=== PATIENT | male | born 1945 | race Caucasian/White ===

== ENCOUNTER 2017-06-13 18:38 | Emergency (ER) | payer MEDICARE ==
[~2017-06-13] VITALS: Ht 167.6 cm; Wt 74.1 kg
[~2017-06-13 18:38] MED LIST: ACETAMINOPHEN W1 TA6 PO; ACIPHEX20 MG PO; ALBUTEROL0.09 MG/A1 IH; ALBUTEROL0.83 MG/ML IH; AMOXICILLIN 50500 MG PO; AMOXICILLIN 8751 TAB PO; BETIMOL 0.5% OPH5 ML OP; CELEBREX 200MG200 MG PO; CELEXA20 MG PO; CELEXA40 MG PO; CLOPIDOGREL PO; COMBIRESP; COMBIVENT INH14.7 GM IH; COUMADIN 22.5 MG/TAB PO; COUMADIN 5MG5 MG/TAB PO; CYMBALTA 60MG60 MG PO; DOXYCYCLINE 10100 MG PO; FISH OIL CONC1000 MG PO; FLONASE NASAL S16 GM NS; FORADIL AERO0.012 MG IH; ISTALOL 2.5 ML2.5 ML OP; LIPITOR 40MG TA40 MG PO; LIPITOR 80MG80 MG PO; LISINOPRIL10 MG PO; LISINOPRIL5 MG PO; LOPRESSOR 225 MG/TAB PO; LOPRESSOR PO; LORTAB 7.5/5001 TAB PO; MASON NATURAL2000 IU PO; MUCINEX D1 TER PO; NASACORT AQ N16.5 GM NS; NASONEX SPRAY INH; NORCO 325 MG-51 TAB PO; NORCO 325 MG-7.1 TAB PO; PANTOPRAZOLE40 MG PO; PEPCID 20MG TAB20 MG PO; PLAVIX 75MG TAB75 MG PO; PREDNISONE10 MG PO; PREDNISONE20 MG PO; PRINIVIL20 MG PO; PRINIVIL5 MG PO; PRO-AIR IH; PROTONIX 40MG T40 MG PO; PROVENTIL0.09 MG/A1 IH; PULMICORT0.5 MG/21 IH; REMERON 15M15 MG/TA1 PO; REMERON30 MG PO; RT SPIRIVA18 MCG IH; SEPTRA DS 8001 TAB PO; SINGULAIR10 MG PO; TIMOLOL 0.5% OP10 ML OS; TIMOLOL OPHTHALMIC OS; TIMOPTIC OCUDOSE0.5% OP; TOPROL XL 25MG25 MG PO; TOPROL XL25 MG PO; TRAVATAN 2.5 M2.5 M1 OU; TRAVATAN 2.5 M2.5 ML OP; TRAVATAN Z 2.52.5 ML OU; TYLENOL 325MG325 MG PO; TYLENOL 500MG500 MG PO; ULTRAM 50MG TAB50 MG PO; VENTOLIN0.09 MG IH; XALATAN EYE DROPS OD; XALATAN EYE DROPS OU; ZESTRIL 10MG10 MG PO; ZESTRIL10 MG PO; ZITHROMAX 250M250 MG PO; ZOCOR80 MG PO
[2017-06-13 18:47] VITALS: BP 133/82; TEMP 99.6
[2017-06-13 19:25] LABS: BASO # 0.1 (0.0-0.2); BASO % 0.5 % (0.0-2.0); EOS # 0.3 (0.0-0.7); EOS % 2.8 % (0-4.0); GRAN # 7.1 (1.4-6.5); GRAN % 69.1 % (42.2-75.2); HEMATOCRIT 40.5 % (42.0-52.0); LYMPH # 1.6 (1.2-3.4); LYMPH % 15.2 % (20.0-51.0); MEAN CELL VOLUME 95 fl (80.0-100.0); MEAN CORPUSCULAR HEMOGLOBIN 33 pg (27.0-31.0); MEAN CORPUSCULAR HGB CONC 35 g/dl (33.0-37.0); MEAN PLATELET VOLUME 9.3 fl (7.4-10.4); MONO # 1.2 (0.1-0.6); MONO % 12.1 % (1.7-9.3); PLATELET COUNT 234 K/mm3 (130-400); RED BLOOD COUNT 4.27 M/mm3 (4.20-5.60); WHITE BLOOD COUNT 10.3 K/mm3 (4.8-10.8)
[2017-06-13] MEDS ORDERED: ZYRTEC5 MG PO (19:28)
[2017-06-13] MEDS ORDERED: ROBITUSSIN100 MG/5 M PO (19:28)
[2017-06-13 19:44] LABS: CALCIUM 9.1 mg/dL (8.4-10.2); CREATININE, serum 1.5 mg/dL (0.66-1.25); POTASSIUM 3.9 mmol/L (3.4-5.0)
[2017-06-13] MEDS ORDERED: LEVAQUIN 750MG750 M1 PO (20:58)
[2017-06-13] MEDS ORDERED: TUSS PO (20:58)
[2017-06-13] MEDS ORDERED: PREDNISONE20 MG PO (20:58)
[2017-06-13 21:09] VITALS: PULSE 86
== END 2017-06-13 21:05 | disposition home or self-care (01) ==
LOC: COL.ER 18:38
PROVIDERS: Emergency Medicine
DX: J20.9 Acute bronchitis, unspecified (principal); Z87.09 Personal history of other diseases of the respiratory system; Z79.02 Long term (current) use of antithrombotics/antiplatelets
CPT/HCPCS: J7512

== ENCOUNTER 2017-06-23 17:24 | Emergency (ER) | payer MEDICARE ==
[~2017-06-23] VITALS: Ht 167.6 cm; Wt 78.6 kg
[~2017-06-23 17:24] MED LIST changes: +LEVAQUIN 750MG750 M1 PO; +ROBITUSSIN100 MG/5 M PO; +TUSS PO; +ZYRTEC5 MG PO
[2017-06-23 17:29] VITALS: TEMP 98.3
[2017-06-23 18:25] LABS: BASO % 0.3 % (0.0-2.0); EOS # 0.1 (0.0-0.7); GRAN # 8.3 (1.4-6.5); GRAN % 65.7 % (42.2-75.2); HEMOGLOBIN 14.1 g/dl (13.5-18.0); LYMPH # 2.6 (1.2-3.4); LYMPH % 20.9 % (20.0-51.0); MEAN CELL VOLUME 96 fl (80.0-100.0); MEAN CORPUSCULAR HEMOGLOBIN 32 pg (27.0-31.0); MEAN CORPUSCULAR HGB CONC 34 g/dl (33.0-37.0); MEAN PLATELET VOLUME 8.9 fl (7.4-10.4); MONO # 1.3 (0.1-0.6); MONO % 9.9 % (1.7-9.3); PLATELET COUNT 250 K/mm3 (130-400); RED BLOOD COUNT 4.37 M/mm3 (4.20-5.60); WHITE BLOOD COUNT 12.6 K/mm3 (4.8-10.8)
[2017-06-23 18:33] LABS: ADJUSTED CALCIUM 9.4 mg/dL (8.4-10.2); ALANINE AMINOTRANSFERASE 38 U/L (21-72); ALBUMIN 3.5 gm/dL (3.5-5.0); ALKALINE PHOSPHATASE 74 U/L (50-136); ANION GAP 8 mmol/L (7-16); BILIRUBIN,TOTAL 0.5 mg/dL (0.0-1.0); BLOOD UREA NITROGEN 30 mg/dL (9-20); CARBON DIOXIDE 29 mmol/L (22-30); CHLORIDE 100 mmol/L (98-107); CREATININE, serum 1.24 mg/dL (0.66-1.25); GLUCOSE 68 mg/dL (74-106); POTASSIUM 4.3 mmol/L (3.4-5.0); SODIUM 137 mmol/L (137-145); TOTAL PROTEIN 6.5 gm/dL (6.4-8.2)
[2017-06-23 18:45] LABS: TROPONIN-I < 0.012 ng/mL (0.000-0.034)
[2017-06-23 20:20] VITALS: BP 131/74; PULSE 57
== END 2017-06-23 20:15 | disposition home or self-care (01) ==
LOC: COL.ER 17:24
PROVIDERS: Emergency Medicine
DX: I95.9 Hypotension, unspecified (principal); I10 Essential (primary) hypertension; J44.9 Chronic obstructive pulmonary disease, unspecified; I25.10 Atherosclerotic heart disease of native coronary artery without angina pectoris; Z79.02 Long term (current) use of antithrombotics/antiplatelets; Z96.0 Presence of urogenital implants; Z98.890 Other specified postprocedural states
CPT/HCPCS: J7030

== ENCOUNTER 2017-12-24 15:32 | Emergency (ER) | payer MEDICARE ==
[2017-12-24 15:44] VITALS: TEMP 98.1
[2017-12-24 18:42] LABS: COLLECTION METHOD CLEAN CATCH
[2017-12-24 18:44] LABS: BASO # 0.1 (0.0-0.2); BASO % 0.8 % (0.0-2.0); EOS # 0.3 (0.0-0.7); EOS % 4.5 % (0-4.0); GRAN % 59.8 % (42.2-75.2); HEMATOCRIT 39.4 % (42.0-52.0); HEMOGLOBIN 13.5 g/dl (13.5-18.0); LYMPH # 1.7 (1.2-3.4); LYMPH % 25.2 % (20.0-51.0); MEAN CELL VOLUME 94 fl (80.0-100.0); MEAN CORPUSCULAR HEMOGLOBIN 32 pg (27.0-31.0); MEAN CORPUSCULAR HGB CONC 34 g/dl (33.0-37.0); MEAN PLATELET VOLUME 9.2 fl (7.4-10.4); MONO # 0.6 (0.1-0.6); MONO % 9.4 % (1.7-9.3); PLATELET COUNT 225 K/mm3 (130-400); RED BLOOD COUNT 4.19 M/mm3 (4.20-5.60)
[2017-12-24 18:51] LABS: MUCOUS Present /lpf; PH 6 (5-8); SQUAMOUS EPITHELIAL None Seen /hpf; URINE APPEARANCE Clear; URINE BACTERIA None Seen /hpf; URINE BILIRUBIN Negative (NEGATIVE); URINE BLOOD Negative (NEGATIVE); URINE COLOR Yellow; URINE GLUCOSE Negative (NEGATIVE); URINE KETONE Negative (NEGATIVE); URINE LEUKOCYTE ESTERASE Negative (NEGATIVE); URINE NITRATE Negative (NEGATIVE); URINE PROTEIN(semi-quant) Negative (NEGATIVE); URINE RBC 0-2 /hpf; URINE UROBILINOGEN >=4.0 mg/dL (NEGATIVE)
[2017-12-24 19:00] LABS: ALBUMIN 3.7 gm/dL (3.5-5.0); BILIRUBIN,TOTAL 0.6 mg/dL (0.0-1.0); CREATININE, serum 1.39 mg/dL (0.66-1.25); POTASSIUM 3.9 mmol/L (3.4-5.0); TOTAL PROTEIN 7.6 gm/dL (6.4-8.2)
[2017-12-24 19:39] VITALS: BP 126/84; PULSE 58
== END 2017-12-24 19:33 | disposition home or self-care (01) ==
LOC: COL.ER 15:32
PROVIDERS: Emergency Medicine
DX: S06.0X0A Concussion without loss of consciousness, initial encounter (principal); S43.402A Unspecified sprain of left shoulder joint, initial encounter; I25.2 Old myocardial infarction; J44.9 Chronic obstructive pulmonary disease, unspecified; Z87.891 Personal history of nicotine dependence; Z79.02 Long term (current) use of antithrombotics/antiplatelets; Z79.82 Long term (current) use of aspirin; W17.89XA Other fall from one level to another, initial encounter; Y92.009 Unspecified place in unspecified non-institutional (private) residence as the place of occurrence of the external cause

== ENCOUNTER 2018-03-08 18:22 | Emergency (ER) | payer MEDICARE ==
[~2018-03-08] VITALS: Ht 167.6 cm; Wt 81.8 kg
[2018-03-08 18:28] VITALS: BP 131/64; PULSE 69; TEMP 97.9
[2018-03-08] MEDS ORDERED: CEPHALEXIN500 M1 PO (19:29)
== END 2018-03-08 19:53 | disposition home or self-care (01) ==
LOC: COL.ER 18:22
DX: L03.115 Cellulitis of right lower limb (principal); I12.9 Hypertensive chronic kidney disease with stage 1 through stage 4 chronic kidney disease, or unspecified chronic kidney disease; N18.9 Chronic kidney disease, unspecified; J44.9 Chronic obstructive pulmonary disease, unspecified; I25.10 Atherosclerotic heart disease of native coronary artery without angina pectoris; Z79.02 Long term (current) use of antithrombotics/antiplatelets

== ENCOUNTER 2018-04-11 05:33 | Day surgery (SDC) | payer MEDICARE ==
[2018-04-11] VITALS (8 sets, daily range): BP systolic 102–132; BP diastolic 55–74; PULSE 61–68; TEMP 97.4–97.9
[~2018-04-11] VITALS: Ht 167.6 cm; Wt 82.6 kg
[~2018-04-11 05:33] MED LIST changes: +CEPHALEXIN500 M1 PO
[2018-04-11] MEDS ORDERED: TOPROL XL 25MG25 MG PO (06:51)
[2018-04-11] MEDS ORDERED: PRINIVIL10 MG PO (06:52)
[2018-04-11] MEDS ORDERED: PROVENTIL0.09 MG/A1 IH (06:55)
[2018-04-11] MEDS ORDERED: BACITRACIN TOPIC1 TU TOP (06:56)
[2018-04-11] MEDS ORDERED: 00186-0370-20 IH (06:56)
[2018-04-11] MEDS ORDERED: FLONASEALLERGY NS (06:57)
[2018-04-11] MEDS ORDERED: HCTZ12.5TAB PO (06:57)
[2018-04-11] MEDS ORDERED: XALATAN EYE DROPS OU (06:58)
[2018-04-11] MEDS ORDERED: UROCIT-K 5540 MG/TAB PO (06:59)
[2018-04-11] MEDS ORDERED: NITROSTAT0.4 MG/TAB SL (06:59)
[2018-04-11] MEDS ORDERED: SPIRIVA RE2.5 MCG/Ac IH (07:00)
[2018-04-11] MEDS ORDERED: ASPIRIN 81M81 MG/TA2 PO (07:08)
[2018-04-11] MEDS ORDERED: ARTIFICIAL SALIVA PO (07:08)
[2018-04-11] MEDS ORDERED: IMDUR 30MG30 MG/TAB PO (07:09)
[2018-04-11] MEDS ORDERED: PEPCID 20MG TAB20 MG PO (07:09)
[2018-04-11] MEDS ORDERED: DESYREL 50MG50 MG PO (07:10)
[2018-04-11] MEDS ORDERED: NORCO 325 MG-7.1 TAB PO (10:33)
== END 2018-04-11 12:00 | disposition home or self-care (01) ==
LOC: SDCO 05:33
DX: S83.231A Complex tear of medial meniscus, current injury, right knee, initial encounter (principal); M94.8X6 Other specified disorders of cartilage, lower leg; Z79.82 Long term (current) use of aspirin; Z79.899 Other long term (current) drug therapy; Z79.02 Long term (current) use of antithrombotics/antiplatelets; Z79.51 Long term (current) use of inhaled steroids; J44.9 Chronic obstructive pulmonary disease, unspecified; H40.9 Unspecified glaucoma; I38 Endocarditis, valve unspecified; E78.00 Pure hypercholesterolemia, unspecified; Z95.5 Presence of coronary angioplasty implant and graft; Z95.828 Presence of other vascular implants and grafts; I25.10 Atherosclerotic heart disease of native coronary artery without angina pectoris; G47.33 Obstructive sleep apnea (adult) (pediatric); F17.210 Nicotine dependence, cigarettes, uncomplicated; Z86.73 Personal history of transient ischemic attack (TIA), and cerebral infarction without residual deficits; I12.9 Hypertensive chronic kidney disease with stage 1 through stage 4 chronic kidney disease, or unspecified chronic kidney disease; N18.3 Chronic kidney disease, stage 3 (moderate); I70.1 Atherosclerosis of renal artery; Y99.9 Unspecified external cause status
CPT/HCPCS: J0360; J0690; J2704; J3010; J7120

== ENCOUNTER → 2018-06-10 | Emergency (ER) | payer MEDICARE ==
[~2018-06-10] VITALS: Ht 167.6 cm; Wt 84.1 kg
[~2018-06-10] MED LIST changes: +00186-0370-20 IH; +ARTIFICIAL SALIVA PO; +ASPIRIN 81M81 MG/TA2 PO; +BACITRACIN TOPIC1 TU TOP; +DESYREL 50MG50 MG PO; +FLONASEALLERGY NS; +HCTZ12.5TAB PO; +IMDUR 30MG30 MG/TAB PO; +NITROSTAT0.4 MG/TAB SL; +PRINIVIL10 MG PO; +SPIRIVA RE2.5 MCG/Ac IH; +UROCIT-K 5540 MG/TAB PO
[2018-06-10 21:38] VITALS: TEMP 97.1
[2018-06-10 22:04] LABS: BASO # 0.1 (0.0-0.2); BASO % 0.6 % (0.0-2.0); EOS # 0.4 (0.0-0.7); EOS % 4.6 % (0-4.0); GRAN # 5.4 (1.4-6.5); GRAN % 61.2 % (42.2-75.2); HEMATOCRIT 41.9 % (42.0-52.0); HEMOGLOBIN 14.3 g/dl (13.5-18.0); MEAN CELL VOLUME 93 fl (80.0-100.0); MEAN CORPUSCULAR HEMOGLOBIN 32 pg (27.0-31.0); MEAN CORPUSCULAR HGB CONC 34 g/dl (33.0-37.0); MEAN PLATELET VOLUME 9.3 fl (7.4-10.4); MONO % 11.3 % (1.7-9.3); PLATELET COUNT 232 K/mm3 (130-400); RED BLOOD COUNT 4.53 M/mm3 (4.20-5.60); REDCELL DISTRIBUTION WIDTH-CV 13.8 % (11.5-14.5)
[2018-06-10 22:14] LABS: PROTHROMBIN TIME 10.8 SECONDS (9.7-12.8)
[2018-06-10 22:18] LABS: ALANINE AMINOTRANSFERASE 36 U/L (21-72); ALKALINE PHOSPHATASE 95 U/L (50-136); ANION GAP 13 mmol/L (7-16); AST,SGOT 33 U/L (15-37); BILIRUBIN,TOTAL 0.4 mg/dL (0.0-1.0); BLOOD UREA NITROGEN 16 mg/dL (9-20); CALCIUM 8.8 mg/dL (8.4-10.2); CARBON DIOXIDE 29 mmol/L (22-30); CHLORIDE 97 mmol/L (98-107); CREATININE, serum 1.29 mg/dL (0.66-1.25); GLUCOSE 112 mg/dL (74-106); LIPASE 181 U/L (23-300); POTASSIUM 3.5 mmol/L (3.4-5.0); SODIUM 140 mmol/L (137-145); TOTAL PROTEIN 7.6 gm/dL (6.4-8.2)
[2018-06-10 22:41] LABS: TROPONIN-I < 0.012 ng/mL (0.000-0.034)
[2018-06-10 23:39] VITALS: BP 100/77; PULSE 90
== END ==
LOC: COL.ER 21:25
PROVIDERS: Emergency Medicine
DX: I48.91 Unspecified atrial fibrillation (principal); I25.10 Atherosclerotic heart disease of native coronary artery without angina pectoris; I10 Essential (primary) hypertension; J44.9 Chronic obstructive pulmonary disease, unspecified; Z95.5 Presence of coronary angioplasty implant and graft; Z79.02 Long term (current) use of antithrombotics/antiplatelets; Z79.82 Long term (current) use of aspirin
CPT/HCPCS: J1650; J7030